=== PATIENT | male | born 1960 | race Caucasian/White ===

== ENCOUNTER → 2024-03-14 13:01 | Outpatient (REF) | payer MEDICARE, SELFPAY ==
--- NOTE | 2024-03-14 13:08 | CA_ITS ---
Transthoracic Echocardiogram Patient (Last, First, Middle): Jonathan Tubbs, Gender: Male Date of : 1960 Age: 63 Procedure Date: 03/14/2024 Procedure Type: Transthoracic Echocardiogram Location: OP Height: 177.8 cm Weight: 88.45 kg BSA: 2.06 m2 Heart Rate: bpm BP: 163 / 80 mmHg District Recruiter: NARINDER Referring MD: Jose G Subramanian MD Symptoms: ABNORMAL EKG R94.31 Study Quality: Technically Difficult, contrast ECG Rhythm: Sinus Conclusions: - The left ventricular systolic function is hyperdynamic. The visually estimated ejection fraction is >70%. - There is moderately increased left ventricular wall thickness. - No obvious valvular pathology seen on this study. Findings Procedure Information Contrast agent, definity, is being given per protocol without apparent complications. The study quality is limited by patients body habitus. Left Ventricle Normal left ventricular cavity size. There is moderately increased left ventricular wall thickness. The left ventricular systolic function is hyperdynamic. The visually estimated ejection fraction is >70%. There is no evidence of regional wall motion abnormalities. Diastolic function is normal for age. Right Ventricle Normal right ventricular cavity size and systolic function. Atria The left atrium is mildly dilated. The right atrium is normal in size. Aortic Valve There is a normal trileaflet aortic valve. There is mild calcification of the aortic valve. There is no aortic valve stenosis. There is no aortic valve regurgitation. Mitral Valve The mitral valve appears normal. There is mild mitral annular calcification. There is mild mitral valve regurgitation. There is no mitral valve stenosis. Pulmonic Valve The pulmonic valve is likely normal. Tricuspid Valve There is trace tricuspid valve regurgitation. There is no evidence of pulmonary hypertension. Great Vessels The asc aorta is normal in size. Venous The inferior vena cava is normal in size and collapses greater than 50% with inspiration. Pericardium/Pleural There is no evidence of pericardial effusion. Prior Study Comparison No prior study available for comparison. Recommendations, Care & Conclusions No obvious valvular pathology seen on this study. Measurements 2D Linear Measurements IVSd: 1.27 0.6-0.9/0.6-1.0 cm LVIDd: 4.08 3.9-5.3/4.2-5.9 cm LVIDd Index: 1.98 2.4-3.2/2.2-3.1 cm/m2 LVIDs: 2.45 2.0-3.6 cm LVPWd: 1.31 0.7-1.1 cm LA Diam: 3.50 2.7-3.8/3.0-4.0 cm LAIDs Index: 1.70 1.5-2.3 cm/m2 LV Mass: 236.59 67-162/88-224 g LV Mass Index: 114.85 43-95/49-115 g/m2 LVOT Diam: 2.00 3.0+(-)1.3 cm Mitral Valve MV Pk E: 0.49 MV PK A: 0.48 MV Decel Time: 398.00 E/A: 1.00 E'Lateral: 8.49 E'Medial: 6.64 E/E' Med: 7.40 E/E' Lat: 5.80 PHT: 116.00 MVA PHT: 1.90 Decel Smyth: 1.24 Aortic Valve AoV Pk Chris: 1.35 AoV Mn Chris: 0.87 AoV VTI: 0.26 AoV Pk Grad: 7.00 Aov Mn Grad: 3.00 MISAEL Cont.VTI: 2.29 LVOT LVOT Pk Chris: 0.80 LVOT Mn Chris: 0.53 LVOT VTI: 0.19 LVOT Pk Grad: 3.00 LVOT Mn Grad: 1.00 LVOT Diam: 2.00 LVOT Area: 3.14 Diastolic Function MV Pk E: 0.49 MV Pk A: 0.48 E/A: 1.00 E'Medial: 6.64 E/E' Med: 7.40 E' Laterial: 8.49 E/E' Lat: 5.80 Right Ventricle TAPSE (mm): 25.90 TVS' Chris: 15.10 Tricuspid Valve RA Press: 3.00 Great Vessels Aorta Sinus of Valsalva: 3.19 2.0-3.5 cm Ao Asc: 3.40 2.1-3.4 cm Updated in Other Vendor System with Status of Final Alejandro Mccray MD electronically signed on 03/16/2024 12:04:54 PM with status of Final
== END ==
LOC: HO.CARD 13:01
PROVIDERS: PCP Internal Medicine; Visit Provider Internal Medicine
DX: R94.31 Abnormal electrocardiogram [ECG] [EKG] (principal)
CPT/HCPCS: 93306; Q9957

== ENCOUNTER → 2024-03-14 13:08 | Outpatient (BNV) | payer MEDICARE, SELFPAY | PROVIDERS: PCP Internal Medicine; Visit Provider Internal Medicine | DX: I34.0 Nonrheumatic mitral (valve) insufficiency (principal); R94.31 Abnormal electrocardiogram [ECG] [EKG] | CPT/HCPCS: 93306 ==